=== PATIENT | female | born 1970 | race African-American/Black ===

== ENCOUNTER 2022-11-22 08:18 | Emergency (ER) | payer MEDICAID ==
[~2022-11-22] VITALS: Ht 154.9 cm; Wt 49.0 kg
--- NOTE | 2022-11-22 08:45 | NUR ---
[id number] FROM [facility] FROM BLEEDING ON TONGUE FROM [place] X 1 HOUR. PT ARRIVEDWITH ANGIOEDEMA BUT DENIES PT TO BE NEW ONSET.
[2022-11-22] MEDS ORDERED: MORPHINE SULFATE INJ 4 MG/ML DISP.SYRIN ONE ×3 (08:48→15:18)
[2022-11-22] MEDS ORDERED: ONDANSETRON HCL/PF 4 MG/2 ML VIAL ONE (08:49)
[2022-11-22] MEDS ORDERED: TRANEXAMIC ACID 1,000 MG/10 ML VIAL ONE (08:49)
--- NOTE | 2022-11-22 08:50 | NUR ---
BLOOD DRAWN FROM PORT A CATH AND SENT TO LAB
[2022-11-22] MEDS ORDERED: TRANEXAMIC ACID 1,000 MG/10 ML VIAL TOP ONE (09:00)
[2022-11-22] MEDS ORDERED: MORPHINE SULFATE INJ 2 MG/ML DISP.SYRIN IV ONE ×3 (09:00→15:30)
[2022-11-22] MEDS ORDERED: ONDANSETRON HCL/PF 4 MG/2 ML VIAL IV ONE (09:00)
[2022-11-22 09:05] LABS: BASOPHILS % (AUTO) 0.1 % (0.0-2.0); EOSINOPHILS % (AUTO) 0.4 % (0.0-6.0); HEMATOCRIT 27 % (33-45); HEMOGLOBIN 8.8 g/dL (11.5-14.8); LYMPHOCYTES # (AUTO) 0.5 K/uL (0.8-4.8); LYMPHOCYTES % (AUTO) 6.9 % (20.0-44.0); MEAN CORPUSCULAR HGB CONC 33 g/dl (31.0-36.0); MEAN CORPUSCULAR VOLUME 88 fL (82-100); MONOCYTES # (AUTO) 0.3 K/uL (0.1-1.30); MONOCYTES % (AUTO) 4.6 % (2.0-12.0); NEUTROPHILS # (AUTO) 6.6 K/uL (1.8-8.9); PLATELET COUNT (AUTO) 183 K/uL (150-450); RED BLOOD CELL COUNT(AUTO) 3.04 MIL/uL (4.0-5.2); WHITE BLOOD COUNT (AUTO) 7.5 K/uL (4.3-11.0)
[2022-11-22 09:16] LABS: CALCIUM, SERUM 9.4 mg/dL (8.5-10.1); CREATININE 0.7 mg/dL (0.6-1.3)
[2022-11-22 09:22] LABS: ALBUMIN 2.4 g/dL (3.4-5.0); BILIRUBIN,DIRECT 0.1 mg/dL (0.0-0.2); BILIRUBIN,TOTAL 0.2 mg/dL (0.2-1.0); TOTAL PROTEIN, SERUM 7.4 g/dL (6.4-8.2)
--- NOTE | 2022-11-22 09:49 | NUR ---
TRACH SUCTIONED. RT AT BEDSIDE
--- NOTE | 2022-11-22 10:48 | NUR ---
MOVE SHEET SUBMITTED.
--- NOTE | 2022-11-22 11:04 | NUR ---
rt at bedside. inner canula changed
--- NOTE | 2022-11-22 11:15 | NUR ---
GI[facility] REPORT DEVELOPER CORY.
[2022-11-22] MEDS ORDERED: FAMO20TA8 GT (11:53)
[2022-11-22] MEDS ORDERED: DIPH25CA51 GT (11:53)
[2022-11-22] MEDS ORDERED: ENOX30DI5 SQ (11:53)
[2022-11-22] MEDS ORDERED: PETR113O TP (11:53)
[2022-11-22] MEDS ORDERED: NA P133E RC (11:53)
[2022-11-22] MEDS ORDERED: BISA10SU11 RC (11:53)
[2022-11-22] MEDS ORDERED: HYDR-4303 GT (11:53)
[2022-11-22] MEDS ORDERED: IPRA4AER IH ×2 (11:53)
[2022-11-22] MEDS ORDERED: LACT-209 GT (11:53)
[2022-11-22] MEDS ORDERED: FERR300L GT (11:53)
[2022-11-22] MEDS ORDERED: CHLO473M5 MM (11:53)
[2022-11-22] MEDS ORDERED: DOCU50LI GT (11:53)
[2022-11-22] MEDS ORDERED: MAGN400O6 GT (11:53)
[2022-11-22] MEDS ORDERED: ONDA4TAB5 GT (11:54)
[2022-11-22] MEDS ORDERED: SENN-261 GT (11:54)
[2022-11-22] MEDS ORDERED: OMEP20CA15 GT (11:54)
[2022-11-22] MEDS ORDERED: MORP30TA PO (11:54)
[2022-11-22] MEDS ORDERED: ACET-868 GT (11:54)
--- NOTE | 2022-11-22 12:03 | NUR ---
DR. HERRERA SPEAKING WITH DR. JAIN.
--- NOTE | 2022-11-22 15:24 | NUR ---
MARY [facility] PT ACCEPTED TO [place] UNDER DR. LEES. ENT DR. FORREST. WAITING FOR BED ASSIGNMENT.
--- NOTE | 2022-11-22 15:45 | NUR ---
MORPHINE HELD. BP 90/70. WILL REEVALUATE AFTER FLUIDS GIVEN
[2022-11-22] MEDS ORDERED: IV NS 0.9% 1,000 ML IV ONE (16:00)
--- NOTE | 2022-11-22 16:27 | NUR ---
PATIENT ACCEPTED [facility]. ROOM 514-1. NUMBER FOR REPORT -
--- NOTE | 2022-11-22 16:33 | NUR ---
CALLED [facility] FOR TRANSPORT ETA 45 MINS.
[2022-11-22 16:38] LABS: HEMOGLOBIN 9.1 g/dL (11.5-14.8)
--- NOTE | 2022-11-22 16:44 | NUR ---
REPORT GIVEN TO JONE NICHOLSON FOR CONTINUATION OF CARE
[2022-11-22 17:02] VITALS: BP 99/73
--- NOTE | 2022-11-22 17:38 | NUR ---
TRANSPORT AT BEDSIDE. PATIENT TRANSFERRED TO [facility] PER ACLS PROTOCOL
== END 2022-11-22 17:40 | disposition short-term general hospital (02) ==
LOC: ER 08:54
DX: K13.79 Other lesions of oral mucosa (principal); D64.9 Anemia, unspecified; J96.21 Acute and chronic respiratory failure with hypoxia; K21.9 Gastro-esophageal reflux disease without esophagitis; Z79.899 Other long term (current) drug therapy; Z85.810 Personal history of malignant neoplasm of tongue; Z88.1 Allergy status to other antibiotic agents
CPT/HCPCS: 99285; 96374; 71045; 96361; 96375; 96376; 85025; 80048; 80076; 36415; 85730; 85027; J2270 ×2; J2405; J7030; A4623

== ENCOUNTER 2022-12-31 14:09 | Emergency (ER) | payer MEDICAID ==
[~2022-12-31] VITALS: Ht 152.4 cm; Wt 41.3 kg
[~2022-12-31 14:09] MED LIST: ACET-2605 GT; ACET-868 GT; ALPR0.5T GT; BISA10SU11 RC; CHLO473M5 MM; DEXA4TAB2 GT; DIPH25CA51 GT; FAMO20TA8 GT; HYDR-4303 GT; IBUP-1955 GT; IPRA4AER IH; LACT-209 GT; MAGN400O6 GT; MORP30TA GT; NA P133E RC; OMEP10CA5 GT; SERT50TA GT; TEMA7.5C GT
--- NOTE | 2022-12-31 14:16 | NUR ---
PATIENT CAME WITH TRACHEOSTOMY BLEEDING,ALERT.ON TRACHEOSTOMY WITH 4 LIT OXYGEN.ATTACHED TO MONITOR.
--- NOTE | 2022-12-31 14:17 | NUR ---
DR LEWIS AT BED SIDE
[2022-12-31 14:20] VITALS: O2SAT 100
[2022-12-31] MEDS ORDERED: IV NS 0.9% 1,000 ML BAG IV ONE ×2 (15:00→16:00)
[2022-12-31 15:17] LABS: BASOPHILS % (AUTO) 0.1 % (0.0-2.0); EOSINOPHILS % (AUTO) 0.1 % (0.0-6.0); HEMATOCRIT 27 % (33-45); LYMPHOCYTES # (AUTO) 1.2 K/uL (0.8-4.8); LYMPHOCYTES % (AUTO) 7.2 % (20.0-44.0); MEAN CORPUSCULAR HGB CONC 33 g/dl (31.0-36.0); MEAN CORPUSCULAR VOLUME 88 fL (82-100); MONOCYTES # (AUTO) 0.5 K/uL (0.1-1.30); MONOCYTES % (AUTO) 2.7 % (2.0-12.0); NEUTROPHILS # (AUTO) 15.5 K/uL (1.8-8.9); NEUTROPHILS % (AUTO) 89.9 % (43.0-81.0); PLATELET COUNT (AUTO) 269 K/uL (150-450); RED BLOOD CELL COUNT(AUTO) 3.07 MIL/uL (4.0-5.2); WHITE BLOOD COUNT (AUTO) 17.3 K/uL (4.3-11.0)
--- NOTE | 2022-12-31 15:24 | NUR ---
WAITER/WAITRESS FORMAL NOTIFIED FOR CHEST XRAY ORDER
[2022-12-31 15:33] LABS: CALCIUM, SERUM 9.8 mg/dL (8.5-10.1); CREATININE 0.5 mg/dL (0.6-1.3); POTASSIUM 4.4 mmol/L (3.5-5.1)
--- NOTE | 2022-12-31 15:38 | NUR ---
SUPERVISOR DAIRY SANITATION AT BEDSIDE.
--- NOTE | 2022-12-31 15:44 | NUR ---
GI[facility] CALLED TO OPEN CASE FOR TRANSFER TO [facility] WITH ENT. COORDINATOR DID NOT MANAGER WORKERS COMPENSATION WILL RETURN CALL.
[2022-12-31] MEDS ORDERED: PIPERACILLIN /TAZOBACTAM 3.375 G in IV D5W 50 ML IV ONE (16:00)
[2022-12-31] MEDS ORDERED: LORAZEPAM INJ 2 MG/ML VIAL IV ONE (16:00)
[2022-12-31] MEDS ORDERED: LORAZEPAM INJ 2 MG/ML VIAL ONE (16:04)
--- NOTE | 2022-12-31 16:10 | NUR ---
LAB AT BED SIDE
--- NOTE | 2022-12-31 16:15 | NUR ---
LACTIC ACID 3.0
--- NOTE | 2022-12-31 16:18 | NUR ---
PERLA 3.0MD VILLALPANDO
--- NOTE | 2022-12-31 16:26 | NUR ---
REGAL ATTEMPTED TO CONTACT COORDINATOR - 2ND TIME COORDINATOR NOT AVAILABLE. REGAL MADE AWARE URGENT PT REQ HIGHER LEVEL OF CARE. AWAITING CALL BACK
--- NOTE | 2022-12-31 16:42 | NUR ---
blood cultres drawn
[2022-12-31] MEDS ORDERED: POVI3780 TP (16:47)
[2022-12-31] MEDS ORDERED: NUTR150016 PO (16:47)
[2022-12-31] MEDS ORDERED: ACET650S26 GT (16:47)
[2022-12-31] MEDS ORDERED: METH10SO GT (16:47)
[2022-12-31] MEDS ORDERED: MULT-213 GT (16:47)
[2022-12-31] MEDS ORDERED: SENN-261 GT (16:47)
[2022-12-31] MEDS ORDERED: [UNRECOGNIZED DRUG - OTHER] TD (16:47)
[2022-12-31] MEDS ORDERED: FERR220S2 GT (16:47)
[2022-12-31] MEDS ORDERED: ZINC220C6 GT (16:47)
[2022-12-31] MEDS ORDERED: ALBUTEROL SULFATE INH (16:47)
[2022-12-31] MEDS ORDERED: NA P133E RC (16:47)
[2022-12-31] MEDS ORDERED: DOCU250C14 GT (16:47)
[2022-12-31] MEDS ORDERED: AMIN30LI2 GT (16:47)
[2022-12-31] MEDS ORDERED: NORM210S TP (16:47)
[2022-12-31] MEDS ORDERED: CEFT2VIA64 IV (16:47)
[2022-12-31] MEDS ORDERED: ASCO500L2 GT (16:47)
[2022-12-31] MEDS ORDERED: XEROFORM TP (16:47)
[2022-12-31] MEDS ORDERED: ONDA8TAB65 GT (16:47)
--- NOTE | 2022-12-31 17:14 | NUR ---
[facility] COORDINATOR CONTACTED. CLINICALS FAXED TO [facility].
--- NOTE | 2022-12-31 17:32 | NUR ---
ATTEMTED TO CONTACT FAMILY NO ANSWER WAS RECIEVED
--- NOTE | 2022-12-31 17:37 | NUR ---
[facility] [phone], SPOKE WITH NEED FOR PT HIGHER LVL OF CARE DUE TO ENT REQUIRED. MALOU INFORMED ME NO ETA DUE TO DIFFICULTY ACQUIRING ACCEPTING ENT.
--- NOTE | 2022-12-31 18:34 | NUR ---
LAB AT BED SIDE
[2022-12-31 19:07] LABS: BILIRUBIN,DIRECT 0.1 mg/dL (0.0-0.2); BILIRUBIN,TOTAL 0.2 mg/dL (0.2-1.0)
--- NOTE | 2022-12-31 19:07 | NUR ---
PATIENT IS STILL HAVE SOME BLEEDING FROM TRACHEAL SITE,VITAL OK
--- NOTE | 2022-12-31 19:12 | NUR ---
PATIENT HAND OVER TO DIANE FOR IVETTE
--- NOTE | 2022-12-31 19:34 | NUR ---
RECEIVED REPORT FROM ARNALDO OF LAB. PT LACTIC ACID 2.8. DR LEWIS MADE AWARE
--- NOTE | 2022-12-31 19:38 | NUR ---
BLOOD DRAW FOR H&H
[2022-12-31 19:45] VITALS: O2SAT 97
--- NOTE | 2022-12-31 20:28 | NUR ---
CALLED [facility] AND SPOKE TO MIMA [facility]; AWAITING FOR CALL BACK FROM [facility] [phone] TO F/U REGARDING TRANSFERRING PT FOR HIGHER LEVEL OF CARE ENT.
--- NOTE | 2022-12-31 21:09 | NUR ---
CALLED [facility] [phone]; NOT ABLE TO FIND ACCEPTING ENT WILL F/U
[2022-12-31 21:29] LABS: HEMOGLOBIN 6.1 g/dL (11.5-14.8)
--- NOTE | 2022-12-31 21:30 | NUR ---
CRITICAL LAB HGB 6.1 / HCT 18.1
--- NOTE | 2022-12-31 21:32 | NUR ---
[place] [facility] [place] [facility]
--- NOTE | 2022-12-31 22:06 | NUR ---
BLOOD TRANSFUSION CONSENT FORM SIGNED; WITNESSED WITH 2 RNS
--- NOTE | 2022-12-31 22:08 | NUR ---
PER JORDAN CHIN CM; INSURACE APPROVED FOR PT TO TRANSFER PT TO ANY FACILITY WITH ENT FOR HIGHER LEVEL OF CARE
--- NOTE | 2022-12-31 22:31 | NUR ---
FAXED CLINICALS TO [facility] ATTN TO PATRIC [facility] (FAX) [phone]
--- NOTE | 2022-12-31 22:31 | NUR ---
COVID SWAB COLLECTED AND SENT TO LAB
[2022-12-31] MEDS ORDERED: GELATIN SPONGE,ABSORBABLE 1 SPONGE SPONGE TP ONE ×2 (22:34→22:39)
--- NOTE | 2022-12-31 22:42 | NUR ---
TRACH CARE DONE. BLOOD NOTED ON TRACHEOSTOMY SITE. APPLIED SURGICEL AND GAUZE. WILL CONTINUE TO MONITOR.
--- NOTE | 2022-12-31 22:47 | NUR ---
Raven parmar in ED - 12/31/22 at 2350 by ANTONIO REPORT GIVEN TO DARREN BRYSON. REPORT GIVEN TO ANGELA OF [facility]
--- NOTE | 2022-12-31 22:51 | NUR ---
Raven parmar in ED - 12/31/22 at 2335 by ANTONIO PATIENT TRANSFERRED BACK TO [facility]IA [facility]. PATIENT IS VITALLY STABLE.
--- NOTE | 2022-12-31 22:56 | NUR ---
FAXED CLINICALS TO [facility] ATTN TO GABBY FAX [phone]
--- NOTE | 2022-12-31 23:15 | NUR ---
1 UNIT OF LRBC A+ STARTED. VERIFIED BY 2 RN'S VIVIAN/ MANI. WILL MONITOR PT
--- NOTE | 2022-12-31 23:20 | NUR ---
PER GABBY FROM [facility]; FACILITY [facility]
--- NOTE | 2022-12-31 23:32 | NUR ---
CALLED [facility] & SPOKE TO [place]; FACILITY AT [facility].
[2022-12-31 23:33] VITALS: O2SAT 99
[2022-12-31] MEDS ORDERED: TRANEXAMIC ACID 1,000 MG/10 ML VIAL ONE (23:52)
--- NOTE | 2022-12-31 23:52 | NUR ---
PER ARTURO HUITRON RN PYTHON DJANGO DEVELOPER PT NOT CANDIDATE FOR ACCEPTANCE ED-ED TRANSFER BECAUSE NOT " TRAUMA LEVEL"
--- NOTE | 2023-01-01 00:01 | NUR ---
SPOKE TO [facility] [phone] FAXED CLINICALS TO [facility]
--- NOTE | 2023-01-01 00:32 | NUR ---
Raven parmar in EDM - 01/01/23 at 0033 by BRIAN [facility] [phone] REQUESTED FOR [facility] TO CONTACT HER DIRECTLY REGARDING TRANSFER. RELAYED MESSAGE TO [facility]; AWAITING CALL BACK FROM [facility]
--- NOTE | 2023-01-01 00:32 | NUR ---
[facility] [phone] REQUESTED FOR [facility] TO CONTACT HER DIRECTLY REGARDING TRANSFER. RELAYED MESSAGE TO REGOR; AWAITING CALL BACK FROM [facility]
--- NOTE | 2023-01-01 00:40 | NUR ---
TRACH CARE DONE. ACTIVE BLEEDING NOTED ON TRACHEOSTOMY SITE. APPLIED TRANEXEMIC ACID AND GAUZE. WILL CONTINUE TO MONITOR. ADLS DONE. PT KEPT CLEAN AND DRY.
--- NOTE | 2023-01-01 00:40 | NUR ---
1ST BAG LRBC COMPLETED, NO TRANSFUSION REACTIONS NOTED. PT REMAINS AWAKE,ALERT, ABLE TO MAKE NEEDS KNOWN BY WRITING. 2ND UNIT OF LRBC PENDING TO BE STARTED.
--- NOTE | 2023-01-01 01:15 | NUR ---
2ND UNIT OF LRBC A+ STARTED. VERIFIED BY 2 RN'S GINA/MANI. WILL MONITOR PT FOR TRANSFUSION REACTION.
--- NOTE | 2023-01-01 01:41 | NUR ---
PER [facility] STEIN [phone] [facility], [place], [place] [facility].
--- NOTE | 2023-01-01 01:44 | NUR ---
DR LOUIS DO ON PHONE CALL WITH DR. HILARIA EVANS FROM [facility]
--- NOTE | 2023-01-01 01:55 | NUR ---
CTA results fax to [phone] ATTN: PATRIC once CTA done, ask radiology to send it through PACS then call transfer center [facility] [phone] #1
[2023-01-01] MEDS ORDERED: IOHEXOL-300 100 ML VIAL IV ONE (02:11)
[2023-01-01] MEDS ORDERED: CT SWABBABLE VALVE TRANS SET 1 EA INFUS.SET MC ONE (02:11)
[2023-01-01] MEDS ORDERED: IV NS 0.9% 250 ML IV ONE (02:12)
--- NOTE | 2023-01-01 02:15 | NUR ---
PT TAKEN TO CT VIA ARPAN WITH RN
--- NOTE | 2023-01-01 02:16 | NUR ---
CALLED [facility] AND LEFT VOICE MESSAGE REGARDING TRANSFER [phone]
[2023-01-01] MEDS ORDERED: MORPHINE SULFATE INJ 2 MG/ML DISP.SYRIN ONE ×2 (02:33→08:05)
[2023-01-01] MEDS ORDERED: TRANEXAMIC ACID 1,000 MG/10 ML VIAL ONE (02:44)
--- NOTE | 2023-01-01 02:45 | NUR ---
2nd BAG LRBC COMPLETED, NO TRANSFUSION REACTIONS NOTED. PT REMAINS AWAKE,ALERT, ABLE TO MAKE NEEDS KNOWN BY WRITING. BP NOW 123/86. PATIENT MEDICATED FOR PAIN.
--- NOTE | 2023-01-01 02:45 | NUR ---
VERBAL ORDERS FROM DR LOUIS DO TO ADMIN TRANEXEMIC ACID 500MG VIA INHALATION BREATHING TX FOR ACTIVE BLEEDING. RT NOTIFIED.
--- NOTE | 2023-01-01 02:48 | NUR ---
PER [facility] RN REVIEW ENGINEER, NO BEDS AVAILABLE [phone]
[2023-01-01] MEDS: MORPHINE SULFATE INJ 2 MG/ML DISP.SYRIN IV PRN ×2 (02:50→08:08)
[2023-01-01] MEDS ORDERED: TRANEXAMIC ACID 1,000 MG/10 ML VIAL NS ONE (03:00)
[2023-01-01 03:11] VITALS: O2SAT 100
--- NOTE | 2023-01-01 03:14 | NUR ---
PER [facility] RESORT HOST, NOT ABLE TO ACCEPT PT AT THIS TIME
--- NOTE | 2023-01-01 03:29 | NUR ---
FAXED CLINICALS AND FACESHEET TO [facility] FAX [phone] [facility] OFFICE [phone]
[2023-01-01 03:30] VITALS: O2SAT 100
--- NOTE | 2023-01-01 03:30 | NUR ---
RT AT PT'S BEDSIDE FOR TRANEXAMIC ACID 500MG BREATHING TX
--- NOTE | 2023-01-01 03:30 | NUR ---
PT ACCPETED TO [facility] BY DR MANRIQUE FOR ED TO ED, THEN TO BE TRANSFERRED TO MICU. CASE BEING REVIEW BY [facility] TEAM.
--- NOTE | 2023-01-01 03:43 | NUR ---
SPOKE TO [facility] [phone] AWAITING FOR APPROVAL TO SET UP TRANSPORTATION TO [facility] ED.
[2023-01-01 03:46] VITALS: O2SAT 100
--- NOTE | 2023-01-01 03:50 | NUR ---
PT ON T-PIECE COOL AIR MIST ON 5LPM FIO2 28% TOLERATING AT 100%
--- NOTE | 2023-01-01 04:05 | NUR ---
DR MISSY CASTAÑEDA ON PHONE CALL WITH NICO PRADO RN Addendum: 01/01/[address] MISSY CASTAÑEDA ON PHONE CALL WITH NICO PRADO MD
--- NOTE | 2023-01-01 04:43 | NUR ---
ENTRY LEVEL RECRUITER AT BEDSIDE
[2023-01-01 05:08] LABS: HEMOGLOBIN 10.7 g/dL (11.5-14.8)
--- NOTE | 2023-01-01 05:38 | NUR ---
PER PATRIC FROM [facility], ENT DECLINE PT BC PT IS NOT CANDIDATE FOR SURGERY. PT ACCEPTED TO MICU, HOWEVER IS AT [facility]. AWAITING FOR APPROVAL FOR PT TO TRANFER ED TO ED.
--- NOTE | 2023-01-01 05:43 | NUR ---
PT ACCEPTED TO [facility] ER TO ER ACCEPTING PHYSICIAN DR. RAMÍREZ TSANG [address], [address] CALL FOR REPORT TO ED [phone]
--- NOTE | 2023-01-01 05:44 | NUR ---
PER [facility] NO ALS TRANSPORATION AVAILABLE
[2023-01-01 06:35] VITALS: TEMP 98.5
--- NOTE | 2023-01-01 06:37 | NUR ---
[facility] TO TRANSFER PT TO [facility] ETA [phone]
--- NOTE | 2023-01-01 06:47 | NUR ---
REPORT GIVEN TO JONE ELIZONDO OF [facility] EMERGENCY DEPT.
--- NOTE | 2023-01-01 07:42 | NUR ---
RECEIVED PT FROM [facility] RN PT ASLEEPY WITH TRACH WITH ACTIVE OZZING TRACH BLOODY COLOR WITH TRACH T- PICE FIO2 5L RR 18B/MIN
--- NOTE | 2023-01-01 08:11 | NUR ---
DR. DE LEON ENT @ [facility] SPEAKING WITH DR. MURILLO.
[2023-01-01 08:20] VITALS: BP 111/77; O2SAT 100
--- NOTE | 2023-01-01 08:28 | NUR ---
TRANSFER TO [facility] VIA WITH TRACH T-PICE 5L FIO2 5 L STABLE VS PAIN 0/10
== END 2023-01-01 08:43 | disposition short-term general hospital (02) ==
LOC: ER 14:27
DX: J95.01 Hemorrhage from tracheostomy stoma (principal); D64.9 Anemia, unspecified; K21.9 Gastro-esophageal reflux disease without esophagitis; Z88.8 Allergy status to other drugs, medicaments and biological substances; Z79.899 Other long term (current) drug therapy; Z85.810 Personal history of malignant neoplasm of tongue; Z20.822 Contact with and (suspected) exposure to COVID-19
CPT/HCPCS: 99291; 96365; 96361; 36430 ×2; 96375 ×2; 93005; 71045; 82247; 82248; 84145; 85025; 85027 ×2; 80048; 87040 ×2; 83605 ×2; 36415 ×2; 85730; 87081; 86850; 87426; 86923 ×2; 96376; 70491; 31720; 94640; J2060; J2543; J7060; J7030 ×2; J7040 ×2; A6403; A7526; P9016 ×2; C9803; J7050; J2270 ×2; Q9967